=== PATIENT | female | born 2000 | race Caucasian/White ===

== ENCOUNTER 2022-06-01 17:30 | Emergency (ER) | payer BC, SELFPAY ==
[2022-06-01] VITALS (12 sets, daily range): BP systolic 90–124; BP diastolic 60–95; PULSE 89–125; RESP 16–18; TEMP 37.1; O2SAT 96–100; BMI 30.1
--- NOTE | 2022-06-01 18:26 | CRLHL7_ITS ---
For Patients: As a result of the Century Cures Act, medical imaging exams and procedure reports are released immediately into your electronic medical record. You may view this report before your referring provider. If you have questions, please contact your health care provider. INDICATION: Abdominal pain TECHNIQUE: Axial images were obtained from the diaphragm to the pubic symphysis. Reformats were obtained in the coronal and sagittal plane. IV Contrast: 100 cc Isovue 370 Oral Contrast: None COMPARISON: None. FINDINGS: Lower chest: Unremarkable. Liver: Unremarkable. Normal in size and attenuation. No masses. Gallbladder and bile ducts: Unremarkable. No stones or inflammation. No biliary dilatation. Spleen: Unremarkable. Normal in size without mass. Pancreas: Unremarkable. No mass or inflammation. Adrenal glands: Unremarkable. No nodules. Kidneys: Unremarkable. No masses, stones, or hydronephrosis. Vasculature: Unremarkable. GI tract: No dilated loops of large or small intestine. Appendix unremarkable. Fluid noted throughout the colon. Pelvis: Unremarkable. Bones: Unremarkable for age. IMPRESSION: No dilated bowel or localized inflammation. Fluid is noted throughout the colon which can be seen in a diarrheal illness. Please note that all CT scans at this facility use dose modulation, iterative reconstruction, and/or weight-based dosing when appropriate to reduce radiation dose to as low as reasonably achievable. Dictated by Levi Christensen MD @ 06/01/2022 6:58:45 PM (Electronically Signed)
--- NOTE | 2022-06-01 18:27 | ED.ABDPAIN ---
HPI - Abdominal Pain General Chief Complaint: Abdominal Pain Stated Complaint: Vomiting,Diarrhea,Aches Time Seen by Provider: 06/01/22 17:59 History of Present Illness HPI narrative: Pt is a healthy 22 year old woman who presents with the abrupt onset of nausea, vomiting, nonbloody diarrhea and mild lower abd pain which began 12 hours ago. Pt has had no recent travel. Pt states that she is not as she has a same sex partner. Pt is unable to keep food or drink down. She has had no fever or chills. Pt's partner is not sick. Pt states the pain is mild and in the lower quadrants bilaterally. No other significant symptoms and pt has been in otherwise good health. Related Data Home Medications Medication Instructions Recorded Confirmed No Known Home Medications 06/01/22 06/01/22 Allergies Allergy/AdvReac Type Severity Reaction Status Date / Time No Known Drug Allergies Allergy Verified 06/01/22 17:42 Review of Systems Status of ROS Reports: 10 or more systems reviewed and unremarkable except as noted in History and below PFSH PFS Surgical History (Updated 06/01/22 @ 18:29 by Kole Bloom MD) Hatch teeth extracted Social History Smoking Status: Current some day smoker Do you use any of these nicotine containing products: Vaping Products Second hand tobacco smoke exposure: No How often do you have a drink containing alcohol: 2-3 times a week How many standard drinks containing alcohol do you have on a typical day: 1 or 2 AUDIT-C Alcohol total score: 3 Non-prescribed substance use: denies use service: No Exam Narrative: Exam Narrative: EXAM GENERAL: Patient appears comfortable and well. EYES: No scleral icterus. THYROID: no thyroid nodules or thyromegaly. LYMPH: No supraclavicular or cervical lymphadenopathy. SKIN: Visible skin seen during exam normal or with benign process only. EXT: No dependent lower extremity pedal edema. HEART: Regular rate and rhythm with no murmurs, rubs, or gallops. LUNGS: Clear to auscultation bilaterally with no crackles or wheezes. ABD: Soft, non tender, non distended. PSYCH: Good eye contact, speech is not pressured. Const: Vital Signs, click to edit/add: Vital Signs - 24 hr 06/01/22 17:43 06/01/22 18:10 06/01/22 18:11 Temperature 98.7 F Pulse Rate 115 H Pulse Rate [Pulse Oximeter] 125 H Respiratory Rate 16 Blood Pressure 100/68 Blood Pressure [Ri ght Upper Arm] 90/60 Pulse Oximetry 97 96 Oxygen Delivery Me thod Room Air 06/01/22 18:16 06/01/22 18:23 06/01/22 18:30 Temperature Pulse Rate 94 91 Pulse Rate [Pulse Oximeter] Respiratory Rate Blood Pressure 97/60 Blood Pressure [Ri ght Upper Arm] Pulse Oximetry 99 99 Oxygen Delivery Me thod 06/01/22 18:31 Temperature Pulse Rate 94 Pulse Rate [Pulse Oximeter] Respiratory Rate Blood Pressure 119/71 Blood Pressure [Ri ght Upper Arm] Pulse Oximetry 97 Oxygen Delivery Me thod Course Course Hospital Course: CBC, CMP, Amylsase, Lactae, UA, CT abd and pelvis ordered. Normal saline bolus begun. Pt given zofran 4 mg IV. Reevaluation(s) Reevaluation #1: Pt feeling better. Labs reassuring except mild elevation of Lactate which is treated with 2 liters of normal saline. CT results reassuring. Time: 20:02 Vital Signs Vital signs: Initial Vital Signs Temperature 98.7 F 06/01/22 17:43 Temperature Source Temporal Artery Scan 06/01/22 17:43 Pulse Rate 125 H 06/01/22 17:43 Pulse Rhythm 06/01/22 17:43 Pulse Strength 3+ Normal 06/01/22 17:43 Respiratory Rate 16 06/01/22 17:43 Blood Pressure 90/60 06/01/22 17:43 Blood Pressure Mean 70 06/01/22 17:43 Blood Pressure Position Sitting 06/01/22 17:43 Pulse Oximetry 97 06/01/22 17:43 Oxygen Delivery Method 06/01/22 17:43 Vital Signs Temperature 98.7 F 06/01/22 17:43 Pulse Rate 125 H 06/01/22 17:43 Respiratory Rate 16 06/01/22 17:43 Blood Pressure 90/60 06/01/22 17:43 Pulse Oximetry 97 06/01/22 17:43 Oxygen Delivery Method 06/01/22 17:43 Temperature 98.7 F 06/01/22 17:43 Pulse Rate 94 06/01/22 18:31 Respiratory Rate 16 06/01/22 17:43 Blood Pressure 119/71 06/01/22 18:31 Pulse Oximetry 97 06/01/22 18:31 Oxygen Delivery Method 06/01/22 17:43 MDM - Abdominal Pain MDM Narrative Medical decision making narrative: Pt presents with acute onset of nausea, vomiting and diarrhea. Pt has an unremarkable CT of the abd and pelvis and. Labs look stable with the exception of mild elevation in Lactate. Pt given 2 liters normal saline plus Zofran 4 mg IV once and she is feeling better with normalized vital signs. Will treat as gastroenteritis with zofran odt and advancement of diet as tolerated. Differential Diagnosis Differential diagnosis: Likely acute appendicitis, constipation, diverticulitis, endometriosis, gastroenteritis, pancreatitis and small bowel obstruction Lab Data Labs: Lab Results 06/01/22 06/01/22 06/01/22 Range/Units 17:54 18:15 18:15 WBC 9.21 (4.50-11.00) K/uL RBC 5.27 H (4.00-5.20) m/uL Hgb 14.6 (12.0-16.0) gm/dL Hct 43.2 (33.0-51.0) % MCV 82 (80-100) fL MCH 28 (26-34) pg MCHC 34 (32-36) gm/dL RDW Coeff of Kirsten 13.1 (11.5-15.5) % Plt Count 533 H (140-440) K/uL Neut % (Auto) 89.8 H (42.0-72.0) % Lymph % (Auto) 4.1 L (20-44) % Cochran % (Auto) 5.3 (0.0-11.0) % Eos % (Auto) 0.4 (0.0-7.0) % Baso % (Auto) 0.3 (0.0-3.0) % Neut # (Auto) 8.30 H (1.7-7.0) K/uL Lymph # (Auto) 0.40 L (0.90-2.90) K/uL Cochran # (Auto) 0.50 (0.00-0.90) K/UL Eos # (Auto) 0.04 (0.00-0.50) K/uL Baso # (Auto) 0.03 (0.00-0.30) K/uL Sodium 141 (135-149) mmol/L Potassium 3.6 (3.6-5.1) mmol/L Chloride 106 (96-114) mmol/L Carbon Dioxide 20 (20-32) mmol/L BUN 19 (5-24) mg/dL Creatinine 0.7 (0.5-1.5) mg/dL Estimated Creat Clear 136.32 Estimated GFR 125 ml/min Glucose 130 H (60-115) mg/dL Lactate (0.5-1.9) mmol/L Calcium 9.1 (8.4-10.6) mg/dL Total Bilirubin 0.7 (0.1-1.5) mg/dL AST 25 (12-35) U/L ALT 23 (4-35) U/L Alkaline Phosphatase 102 (40-150) U/L Total Protein 8.2 (6.0-8.3) g/dL Albumin 5.0 (3.3-5.0) g/dL Amylase 67 (18-89) U/L SARS-CoV-2 (PCR) Negative SARS-CoV-2 (Negative) Influenza Type A (PCR) Negative PCR FLU A (Negative) Influenza Type B (PCR) Negative PCR FLU B (Negative) RSV (PCR) Negative PCR RSV (Negative) 06/01/22 Range/Units 18:15 WBC (4.50-11.00) K/uL RBC (4.00-5.20) m/uL Hgb (12.0-16.0) gm/dL Hct (33.0-51.0) % MCV (80-100) fL MCH (26-34) pg MCHC (32-36) gm/dL RDW Coeff of Kirsten (11.5-15.5) % Plt Count (140-440) K/uL Neut % (Auto) (42.0-72.0) % Lymph % (Auto) (20-44) % Cochran % (Auto) (0.0-11.0) % Eos % (Auto) (0.0-7.0) % Baso % (Auto) (0.0-3.0) % Neut # (Auto) (1.7-7.0) K/uL Lymph # (Auto) (0.90-2.90) K/uL Cochran # (Auto) (0.00-0.90) K/UL Eos # (Auto) (0.00-0.50) K/uL Baso # (Auto) (0.00-0.30) K/uL Sodium (135-149) mmol/L Potassium (3.6-5.1) mmol/L Chloride (96-114) mmol/L Carbon Dioxide (20-32) mmol/L BUN (5-24) mg/dL Creatinine (0.5-1.5) mg/dL Estimated Creat Clear Estimated GFR ml/min Glucose (60-115) mg/dL Lactate 3.5 H (0.5-1.9) mmol/L Calcium (8.4-10.6) mg/dL Total Bilirubin (0.1-1.5) mg/dL AST (12-35) U/L ALT (4-35) U/L Alkaline Phosphatase (40-150) U/L Total Protein (6.0-8.3) g/dL Albumin (3.3-5.0) g/dL Amylase (18-89) U/L SARS-CoV-2 (PCR) (Negative) Influenza Type A (PCR) (Negative) Influenza Type B (PCR) (Negative) RSV (PCR) (Negative) Discharge Plan Discharge Clinical Impression: Gastroenteritis Condition: Stable Instructions: Gastroenteritis (ED) Activity Level: No Restrictions Discharge Diet: Regular Prescriptions: No Action No Known Home Medications Stand Alone Forms: MyHealth Info Instructions
[2022-06-01 18:29] LABS: Lactate* 3.5 mmol/L (0.5-1.9)
[2022-06-01 18:30] LABS: Basophils Absolute Auto 0.03 K/uL (0.00-0.30); Basophils Percent Auto 0.3 % (0.0-3.0); Eosinophils Absolute Auto 0.04 K/uL (0.00-0.50); Eosinophils Percent Auto 0.4 % (0.0-7.0); Hematocrit 43.2 % (33.0-51.0); Hemoglobin* 14.6 gm/dL (12.0-16.0); Immature Granulocytes Abs Auto 0.01 K/uL (0.00-0.30); Immature Granulocytes Pct Auto 0.1 %; Lymphocytes Percent Auto 4.1 % (20-44); Mean Corpuscular HGB Conc 34 gm/dL (32-36); Mean Corpuscular Hemoglobin 28 pg (26-34); Mean Corpuscular Volume 82 fL (80-100); Monocytes Percent Auto 5.3 % (0.0-11.0); Neutrophils Percent Auto 89.8 % (42.0-72.0); Platelet Count* 533 K/uL (140-440); RDW Coefficient of Variation % 13.1 % (11.5-15.5); Red Blood Count 5.27 m/uL (4.00-5.20); White Blood Count* 9.21 K/uL (4.50-11.00)
[2022-06-01 18:31] LABS: Slide Review Reflex No
[2022-06-01] MEDS: ONDANSETRON 2 MG/ML inj 4 MG IVP (18:34)
[2022-06-01] MEDS: 0.9 % SODIUM CHLORIDE 1000 ml 1,000 ML IV ×2 (18:34→19:39)
[2022-06-01 18:39] LABS: PCR FLU A Negative PCR FLU A (Negative); PCR FLU B Negative PCR FLU B (Negative); PCR RSV Negative PCR RSV (Negative)
[2022-06-01 18:50] LABS: Chloride* 106 mmol/L (96-114); Potassium* 3.6 mmol/L (3.6-5.1); Sodium* 141 mmol/L (135-149)
[2022-06-01 18:52] LABS: Amylase* 67 U/L (18-89); Aspartate Amino Transferase* 25 U/L (12-35); Bilirubin Total* 0.7 mg/dL (0.1-1.5); Blood Urea Nitrogen* 19 mg/dL (5-24); Carbon Dioxide* 20 mmol/L (20-32); Creatinine* 0.7 mg/dL (0.5-1.5); Est. Creatinine Clearance* 136.32; Estimated Glomerular Filt Rate 125 ml/min; Total Protein* 8.2 g/dL (6.0-8.3)
[2022-06-01 18:53] LABS: Alanine Aminotransferase* 23 U/L (4-35); Alkaline Phosphatase* 102 U/L (40-150); Calcium* 9.1 mg/dL (8.4-10.6); Glucose* 130 mg/dL (60-115)
[2022-06-01 18:54] LABS: SARS PCR* Negative SARS-CoV-2 (Negative)
--- NOTE | 2022-06-01 19:17 | ED.NURSE ---
patient was up to the bathroom and voided collected a UA and sent to lab. patient is feeling better and has not had any further diarrhea or vomiting issues since. Fluids continue to be infusing.
--- NOTE | 2022-06-01 20:18 | ED.NURSE ---
up to the bathroom as patient accidently had an accident in pants. given somethings to clean up with and change into pants. returned to the room and reconnected to IV fluids.
== END 2022-06-01 21:17 | disposition home or self-care (01) ==
PROVIDERS: Emergency Provider Internal Medicine
DX: K52.9 Noninfective gastroenteritis and colitis, unspecified (principal)
CPT/HCPCS: 36415; 74177; 80053; 82150; 83605; 85025; 87086; 87502; 87634; 87635; 96361; 96374; 99283; 99284; J2405; J7030; Q9967